=== PATIENT | male | born 1990 | race Caucasian/White ===

== ENCOUNTER 2019-05-18 14:24 | Emergency (ER) | payer OTHER ==
[~2019-05-18] VITALS: Ht 188 cm; Wt 90.7 kg
== END 2019-05-18 17:25 | disposition home or self-care (01) ==
LOC: ER 14:24
DX: S81.051A Open bite, right knee, initial encounter (principal); W54.0XXA Bitten by dog, initial encounter; Y93.02 Activity, running; Y92.413 State road as the place of occurrence of the external cause; Y99.8 Other external cause status

== ENCOUNTER → 2019-08-14 | Emergency (ER) | payer BC ==
[~2019-08-14] VITALS: Ht 188 cm; Wt 93.4 kg
== END | disposition home or self-care (01) ==
LOC: ER 18:27
DX: J06.9 Acute upper respiratory infection, unspecified (principal); R19.7 Diarrhea, unspecified

== ENCOUNTER 2019-12-18 06:14 | Emergency (ER) | payer BC ==
[~2019-12-18] VITALS: Ht 208.3 cm; Wt 93.9 kg
== END 2019-12-18 10:18 | disposition home or self-care (01) ==
LOC: ER 06:14
DX: R10.13 Epigastric pain (principal)